=== PATIENT | female | born 1950 | race Caucasian/White ===

== ENCOUNTER 2016-11-15 13:43 | Emergency (ER) | payer MEDICARE, BC ==
[~2016-11-15 13:43] MED LIST: AZIT250T PO; CEFP200T PO; HCTZ PO; IPRA3AMP NEB; LEXAPRO PO; LIPITOR PO; METF500T4 PO; METOPROLOL PO; OMEP20TA63 PO; OSEL75CA PO; VALS320T2 PO
--- NOTE | 2016-11-15 15:01 | RAD ---
CT of the head without contrast, 11/15/2016: History: Head injury, anticoagulated The ventricles are within normal limits in size. There is no shift of the midline structures. There is no evidence of acute intracranial hemorrhage or mass effect. There is mild mucosal thickening in the left sphenoid and both ethmoid sinuses. Incidental note is made of a calvarial lucency in the left parietal region. This is a nonspecific appearance which could be due to a variety of causes including an enlarged venous mccollum, a benign tumor such as a hemangioma, multiple myeloma or metastatic disease. IMPRESSION: 1. No acute intracranial abnormality is detected. 2. Nonspecific left parietal calvarial lucency PQRS Compliance Statement: One or more of the following individualized dose reduction techniques were utilized for this examination: 1. Automated exposure control 2. Adjustment of the mA and/or kV according to patient size 3. Use of iterative reconstruction technique
--- NOTE | 2016-11-15 15:20 | PHYS DOC ---
Past History Past Medical History: Anxiety, Diabetes, Hypertension, Pneumonia Past Surgical History: Cholecystectomy, Other Alcohol Use: None Drug Use: None Adult General Chief Complaint Chief Complaint: FACE PAIN [facility] HPI 66-year-old lady presents having fallen struck her face she is on Coumadin and her doctor has told her that when she strikes her head she needs to have her head checked Review of Systems Review of Systems Constitutional: Denies fever or chills [] Eyes: Denies change in visual acuity, redness, or eye pain [] HENT she has some tenderness to her nose] Respiratory: Denies cough or shortness of breath [] Cardiovascular: No additional information not addressed in HPI [] GI: Denies abdominal pain, nausea, vomiting, bloody stools or diarrhea [] : Denies dysuria or hematuria [] Musculoskeletal: Denies back pain or joint pain [] Integument: Denies rash or skin lesions [] Neurologic: Denies headache, focal weakness or sensory changes [] Endocrine: Denies polyuria or polydipsia [] Allergies Allergies Allergies Coded Allergies Type Severity Reaction Last Updated Verified codeine Allergy Intermediate 07/02/16 Yes Physical Exam Physical Exam Constitutional: Well developed, well nourished, no acute distress, non-toxic appearance. [] HENT: Normocephalic, atraumatic, bilateral external ears normal, oropharynx moist, no oral exudates, nose normal. [] Eyes: PERRLA, EOMI, conjunctiva normal, no discharge. [] Neck: Normal range of motion, no tenderness, supple, no stridor. [] Cardiovascular:Heart rate regular rhythm, no murmur [] Lungs & Thorax: Bilateral breath sounds clear to auscultation [] Abdomen: Bowel sounds normal, soft, no tenderness, no masses, no pulsatile masses. [] Skin: Warm, dry, no erythema, no rash. [] Back: No tenderness, no CVA tenderness. [] Extremities: No tenderness, no cyanosis, no clubbing, ROM intact, no edema. [] Neurologic: Alert and oriented X 3, normal motor function, normal sensory function, no focal deficits noted. Her neurologic examination is entirely normal Psychologic: Affect normal, judgement normal, mood normal. [] Current Patient Data Lab Results Laboratory Tests Test 11/15/16 14:32 Prothrombin Time 35.4 SEC (9.4-11.4) H Prothrombin Time INR 3.4 (0.9-1.1) H EKG EKG [] Radiology/Procedures Radiology/Procedures [] Impressions: Nasal contusion Course & Med Decision Making Course & Med Decision Making Pertinent Labs and Imaging studies reviewed. (See chart for details) INR is 3.4 and this was reported to the patient [] Dragon Disclaimer Dragon Disclaimer This chart was dictated in whole or in part using Voice Recognition software in a busy, high-work load, and often noisy Emergency Department environment. It may contain unintended and wholly unrecognized errors or omissions. Departure Departure: Referrals: MERYL KINNEY (PCP) ZOILA CHAPA MD Nov 15, 2016 15:20
[2016-11-15 15:30] VITALS: BP 138/86
== END 2016-11-15 15:30 | disposition home or self-care (01) ==
LOC: ER 13:43
DX: S00.33XA Contusion of nose, initial encounter (principal); E11.9 Type 2 diabetes mellitus without complications; F41.9 Anxiety disorder, unspecified; Z88.6 Allergy status to analgesic agent; Z79.01 Long term (current) use of anticoagulants; W18.09XA Striking against other object with subsequent fall, initial encounter; Y93.89 Activity, other specified; Y99.8 Other external cause status; Y92.89 Other specified places as the place of occurrence of the external cause
CPT/HCPCS: 36415; 70450; 85610; 99285-25

== ENCOUNTER → 2019-04-01 | Outpatient (CLI) | payer MEDICARE, BC ==
[~2019-04-01] MED LIST changes: -IPRA3AMP NEB; +IPRA3AMP29 NEB; +METF500T16 PO; -METF500T4 PO
--- NOTE | 2019-04-02 09:13 | RAD ---
CT CHEST WO CONTRAST Indication: Abnormal finding of the lung Technique: Noncontrast CT imaging was performed of the chest, multiplanar reconstruction images submitted. One or more of the following individualized dose reduction techniques were utilized for this examination: 1. Automated exposure control 2. Adjustment of the mA and/or kV according to patient size 3. Use of iterative reconstruction technique. Comparison: 07/22/2016 Findings: There is mild dependent density of the lower lobes bilaterally may be component of atelectasis, also mild groundglass density present. There is mild linear atelectasis or fibrotic change of the lingula and right middle lobes. There is no pericardial or pleural fluid, lobar consolidation, pneumothorax. There is again moderate size hiatal hernia, nonspecific wall thickening involved segment. There is some coronary calcification. Ascending thoracic aorta measurements about 3.4 cm. Heart is enlarged. There is some calcification in the visualized left renal hilar region likely vascular in etiology. There is a tiny 0.2 cm right middle lobe nodule image 206 series 2. No significantly enlarged nodes are identified of the chest. IMPRESSION: 1. Mild dependent density of the lower lobes bilaterally is likely component of atelectasis, possibly component of mild dependent edema given the somewhat enlarged heart. There is no discrete suspicious pulmonary nodularity, tiny 0.2 cm right middle lobe nodule for which optional 12 month follow-up could be obtained as per Fleischner guidelines if increased risk factors for neoplasm, otherwise no additional follow-up needed. 2. There is hiatal hernia, nonspecific wall thickening of involved segment. 3. There is some coronary calcification. Electronically signed by: Abhijit Moore MD (04/02/2019 9:10 AM) [id number]
== END | disposition home or self-care (01) ==
LOC: CT 13:33
PROVIDERS: ATTEND Specialist
DX: R91.1 Solitary pulmonary nodule (principal); K44.9 Diaphragmatic hernia without obstruction or gangrene; I25.10 Atherosclerotic heart disease of native coronary artery without angina pectoris; I51.7 Cardiomegaly
CPT/HCPCS: 71250

== ENCOUNTER 2019-11-10 13:17 | Emergency (ER) | payer MEDICARE, BC ==
[~2019-11-10] VITALS: Ht 162.6 cm; Wt 98.8 kg
[2019-11-10] MEDS ORDERED: ASPIRIN CHEWABLE 81 MG TABLET. ONE (13:26)
[2019-11-10] MEDS ORDERED: ASPIRIN CHEWABLE 81 MG TABLET. PO ONE (13:30)
--- NOTE | 2019-11-10 13:32 | PHYS DOC ---
Past History Past Medical History: Anxiety, Diabetes, Hypertension, Pneumonia, Other Past Surgical History: Cholecystectomy, Tonsillectomy, Other Alcohol Use: None Drug Use: None General Adult EDM: Chief Complaint: CHEST PAIN HPI: HPI: Patient is a 69-year-old female who presents to the emergency department for evaluation. She states that about 30 minutes prior to arrival she developed some sharp left-sided chest discomfort, worse with deep breathing and exertion. She reports a mild shortness of breath. She has not had any nausea, vomiting, or diaphoresis. She has no prior coronary history, but she does have risk factors including hypertension, hyperlipidemia, and diabetes. Other than as stated above there are no alleviating or exacerbating factors to her symptoms. Review of Systems: Review of Systems: Constitutional: Denies fever or chills Eyes: Denies change in visual acuity HENT: Denies nasal congestion or sore throat Respiratory: Denies cough Cardiovascular: As per HPI GI: Denies abdominal pain, nausea, vomiting, bloody stools or diarrhea : Denies dysuria Musculoskeletal: Denies back pain or joint pain Integument: Denies rash Neurologic: Denies headache, focal weakness or sensory changes Endocrine: Denies polyuria or polydipsia Lymphatic: Denies swollen glands Psychiatric: Denies depression or anxiety Heart Score: HEART Score for Chest Pain: HEART Score for Chest Pain Response (Comments) Value History Slighlty/Non-Suspicious 0 ECG Normal 0 Age > 65 2 Risk Factors >3 Risk Factors or Hx CAD 2 Troponin < Normal Limit 0 Total 4 Risk Factors: Risk Factors: DM, Current or recent (<one month) smoker, HTN, HLP, family history of CAD, obesity. Risk Scores: Score 0 - 3: 2.5% MACE over next 6 weeks - Discharge Home Score 4 - 6: 20.3% MACE over next 6 weeks - Admit for Clinical Observation Score 7 - 10: 72.7% MACE over next 6 weeks - Early Invasive Strategies Current Medications: Current Meds: Current Medications Medications (Trade) Dose Ordered Sig/Dwayne Start Time Stop Time Status Last Admin Dose Admin Aspirin (Aspirin Chewable) 81 mg STK-MED ONCE 11/10/19 13:26 11/10/19 13:26 DC Allergies: Allergies: Allergies Coded Allergies Type Severity Reaction Last Updated Verified codeine Allergy Intermediate 07/02/16 Yes Physical Exam: PE: PHYSICAL EXAM: CONSTITUTIONAL: Well developed, well nourished HEAD: normocephalic, atraumatic EENT: PERRL, EOMI. Conjunctivae normal color, sclerae non-icteric; moist mucous membranes. NECK: Supple, non-tender; no meningismus. LUNGS: Lungs CTA, breathing even and unlabored. Normal air movement. HEART: Regular rate and rhythm, no murmur CHEST: No deformity; non-tender ABDOMEN: The abdomen is soft, there is epigastric and left upper abdominal tenderness to palpation which somewhat reproduces the patient's "chest pain", the remainder the abdomen is soft and non-tender, no masses or bruits. EXTREM: Normal ROM; no deformity, no calf tenderness. Normal pulses palpable in all extremities. There is no pedal edema. SKIN: No rash; no diaphoresis NEURO: Alert; normal speech and cognition; CN's grossly intact; strength grossly intact without focal deficit. BACK: No CVA TTP. Current Patient Data: Labs: Laboratory Tests Test 11/10/19 13:31 11/10/19 13:55 White Blood Count 6.5 x10^3/uL Red Blood Count 3.88 x10^6/uL Hemoglobin 11.0 g/dL Hematocrit 33.7 % Mean Corpuscular Volume 87 fL Mean Corpuscular Hemoglobin 28 pg Mean Corpuscular Hemoglobin Concent 33 g/dL Red Cell Distribution Width 15.1 % Platelet Count 321 x10^3/uL Neutrophils (%) (Auto) 53 % Lymphocytes (%) (Auto) 34 % Monocytes (%) (Auto) 8 % Eosinophils (%) (Auto) 4 % Basophils (%) (Auto) 1 % Neutrophils # (Auto) 3.5 x10^3uL Lymphocytes # (Auto) 2.2 x10^3/uL Monocytes # (Auto) 0.5 x10^3/uL Eosinophils # (Auto) 0.2 x10^3/uL Basophils # (Auto) 0.1 x10^3/uL Sodium Level 138 mmol/L Potassium Level 4.2 mmol/L Chloride Level 102 mmol/L Carbon Dioxide Level 23 mmol/L Anion Gap 13 Blood Urea Nitrogen 13 mg/dL Creatinine 0.8 mg/dL Estimated GFR (Cockcroft-Gault) 70.7 BUN/Creatinine Ratio 16 Glucose Level 131 mg/dL Calcium Level 9.3 mg/dL Total Bilirubin 0.4 mg/dL Aspartate Amino Transf (AST/SGOT) 21 U/L Alanine Aminotransferase (ALT/SGPT) 24 U/L Alkaline Phosphatase 71 U/L Troponin I Quantitative < 0.017 ng/mL DV-Lcv-V-Type Natriuretic Peptide 168 pg/mL Total Protein 7.9 g/dL Albumin 3.5 g/dL Albumin/Globulin Ratio 0.8 Lipase 86 U/L D-Dimer (Mckenna) 0.52 mg/L Current Medications Medications (Trade) Dose Ordered Sig/Dwayne Route PRN Reason Start Time Stop Time Status Last Admin Dose Admin Aspirin (Aspirin Chewable) 81 mg STK-MED ONCE .ROUTE 11/10/19 13:26 11/10/19 13:26 DC Aspirin (Aspirin Chewable) 162 mg 1X ONCE PO 11/10/19 13:30 11/10/19 13:32 DC Multi-Ingredient Mouthwash/Gargle (Gi Cocktail) 20 ml 1X ONCE PO 11/10/19 15:00 11/10/19 15:33 DC Iohexol (Omnipaque 350 Mg/ml) 100 ml 1X ONCE IV 11/10/19 15:00 11/10/19 15:01 DC 11/10/19 15:19 Info (Do NOT chart on this entry -- for MONITORING) 1 each PRN DAILY PRN MC SEE COMMENTS 11/10/19 15:00 11/12/19 14:59 EKG: EKG: [] Normal sinus rhythm at a rate of 56 bpm, left axis deviation, normal interva ls. There are no acute ischemic ST/T changes. Radiology/Procedures: Radiology/Procedures: PROCEDURE: PORTABLE CHEST 1V Examination: PORTABLE CHEST 1V History: Reason: CHEST PAIN / Spl. Instructions: / History: Comparison/Correlation: 07/24/2016 AP view of the chest Findings: Portable frontal view of chest was obtained. Heart size is borderline mildly enlarged but this may be technique related and is unchanged. No infiltrate or pleural effusion. No pneumothorax. Small hiatal hernia noted. Bony structures are unremarkable. Impression: Hiatal hernia. No infiltrate. [] PROCEDURE: CT ANGIOGRAPHY CHEST PQRS Compliance Statement: One or more of the following individualized dose reduction techniques were utilized for this examination: 1. Automated exposure control 2. Adjustment of the mA and/or kV according to patient size 3. Use of iterative reconstruction technique CT CHEST WITH CONTRAST, PULMONARY ANGIOGRAM History: Chest pain, elevated d-dimer. History of PE. Comparison: CT chest without contrast April 01, 2019. Technique: Helical CT of the chest was performed after the administration of 100 cc of Omnipaque 350 intravenous contrast according to PE protocol. Axial and coronal reconstructions were obtained. 3-D MIP images were constructed to better evaluate the pulmonary arteries. Findings: Pulmonary arteries are adequately opacified. There is no evidence of pulmonary embolism. The thyroid is symmetric. There is no adenopathy in the chest. There are subcentimeter mediastinal lymph nodes. Great vessels are normal caliber. There is no thoracic aortic dissection. There is coronary artery disease. The cardiac size is mildly enlarged but unchanged. There is no pericardial effusion. Moderate-sized hiatal hernia is unchanged. No pleural effusion is seen. Central airways are patent. There is moderate atelectasis in the posterior lower lobes bilaterally. 2 mm nodule in the right middle lobe is stable. Rim calcified left renal vessel is unchanged. There is degenerative endplate spurring of the thoracic spine. IMPRESSION: 1. There is no CT evidence of pulmonary embolus. 2. Moderate bilateral dependent atelectasis. 3. Moderate-sized hiatal hernia is unchanged. Course & Med Decision Making: Course & Med Decision Making Pertinent Labs and Imaging studies reviewed. (See chart for details) [] 4:05 PM: Patient's condition remained stable. Her symptoms have completely resolved. Her hemoglobin is similar to baseline. I had an extensive discussion with the patient about the limitations of ER cardiac evaluation in definitively ruling out acute coronary syndrome. We discussed limitation of the ER evaluation and a singe ED troponin in r/o AMI, and the risks involved in missed diagnosis of acute coronary syndrome including or permanent debility. I recommended overnight observation for further formal cardiac evaluation to rule out acute coronary syndrome. After expressing understanding of the limitations of ER cardiac evaluation, as well as the risks of missed diagnosis, the patient declined further cardiac evaluation at this time. The patient was mentally competent, and given opportunity to ask questions about the diagnosis and recommended plan of care. I stressed the importance of outpatient follow-up, and returning to the emergency department for new or worsening symptoms, or if the patient is agreeable to undergo further cardiac evaluation. Dragon Disclaimer: Dragon Disclaimer: This electronic medical record was generated, in whole or in part, using a voice recognition dictation system. Departure Departure: Impression: Primary Impression: Chest pain Disposition: HOME/RESIDENCE PRIOR TO ADM Condition: STABLE Referrals: GIRISH JIMENES MD (PCP) Patient Instructions: Chest Pain (Nonspecific) Justification of Admission: Justification of Admission: Justification of Admission Dx: N/A ISMAEL MICHAELS MD Nov 10, 2019 13:32
[2019-11-10 13:47] LABS: BASO # 0.1 x10^3/uL (0.0-0.2); BASO % 1 % (0-3); EOS # 0.2 x10^3/uL (0.0-0.7); EOS % 4 % (0-3); HEMATOCRIT 33.7 % (36.0-47.0); LYMPH # 2.2 x10^3/uL (1.0-4.8); LYMPH % 34 % (24-48); MEAN CORPUSCULAR HEMOGLOBIN 28 pg (25-35); MEAN CORPUSCULAR HGB CONC 33 g/dL (31-37); MEAN CORPUSCULAR VOLUME 87 fL (79-100); MONO # 0.5 x10^3/uL (0.0-1.1); MONO % 8 % (0-9); NEUT # 3.5 x10^3uL (1.8-7.7); NEUT % 53 % (31-73); PLATELET COUNT 321 x10^3/uL (140-400); RED BLOOD COUNT 3.88 x10^6/uL (3.50-5.40); RED CELL DISTRIBUTION WIDTH 15.1 % (11.5-14.5); WHITE BLOOD COUNT 6.5 x10^3/uL (4.0-11.0)
--- NOTE | 2019-11-10 13:49 | RAD ---
Examination: PORTABLE CHEST 1V History: Reason: CHEST PAIN / Spl. Instructions: / History: Comparison/Correlation: 07/24/2016 AP view of the chest Findings: Portable frontal view of chest was obtained. Heart size is borderline mildly enlarged but this may be technique related and is unchanged. No infiltrate or pleural effusion. No pneumothorax. Small hiatal hernia noted. Bony structures are unremarkable. Impression: Hiatal hernia. No infiltrate. Electronically signed by: Ayan Champion MD (11/10/2019 1:46 PM) [id number]
[2019-11-10 13:58] LABS: CALCIUM 9.3 mg/dL (8.5-10.1); CREATININE 0.8 mg/dL (0.6-1.0); GFR 70.7; POTASSIUM 4.2 mmol/L (3.5-5.1)
[2019-11-10 14:11] LABS: ALBUMIN 3.5 g/dL (3.4-5.0); ALBUMIN/GLOBULIN RATIO 0.8 (1.0-1.7); TOTAL BILIRUBIN 0.4 mg/dL (0.2-1.0); TOTAL PROTEIN 7.9 g/dL (6.4-8.2)
[2019-11-10] MEDS ORDERED: IOHEXOL 350 MG/ML 100 ML VIAL. IV ONE (15:00)
[2019-11-10] MEDS ORDERED: CONTRAST GIVEN MC PRN (15:00)
[2019-11-10] MEDS ORDERED: LIDO:MAALOX 1:1 20 ML SINGLE DOSE. PO ONE (15:00)
--- NOTE | 2019-11-10 15:48 | RAD ---
PQRS Compliance Statement: One or more of the following individualized dose reduction techniques were utilized for this examination: 1. Automated exposure control 2. Adjustment of the mA and/or kV according to patient size 3. Use of iterative reconstruction technique CT CHEST WITH CONTRAST, PULMONARY ANGIOGRAM History: Chest pain, elevated d-dimer. History of PE. Comparison: CT chest without contrast April 01, 2019. Technique: Helical CT of the chest was performed after the administration of 100 cc of Omnipaque 350 intravenous contrast according to PE protocol. Axial and coronal reconstructions were obtained. 3-D MIP images were constructed to better evaluate the pulmonary arteries. Findings: Pulmonary arteries are adequately opacified. There is no evidence of pulmonary embolism. The thyroid is symmetric. There is no adenopathy in the chest. There are subcentimeter mediastinal lymph nodes. Great vessels are normal caliber. There is no thoracic aortic dissection. There is coronary artery disease. The cardiac size is mildly enlarged but unchanged. There is no pericardial effusion. Moderate-sized hiatal hernia is unchanged. No pleural effusion is seen. Central airways are patent. There is moderate atelectasis in the posterior lower lobes bilaterally. 2 mm nodule in the right middle lobe is stable. Rim calcified left renal vessel is unchanged. There is degenerative endplate spurring of the thoracic spine. IMPRESSION: 1. There is no CT evidence of pulmonary embolus. 2. Moderate bilateral dependent atelectasis. 3. Moderate-sized hiatal hernia is unchanged. Electronically signed by: Fan Merino MD (11/10/2019 3:45 PM) [facility]
[2019-11-10 15:57] VITALS: BP 172/88
--- NOTE | 2019-11-12 07:58 | EKG ---
[facility] [address] [place] [address] Test Date: 2019-11-10 Test Time: 13:23:16 Pat Name: GIRISH BOSTON Department: Room: Gender: Education Program Manager: : 1950 Requested By: ISMAEL MICHAELS Order Number: [id number] Reading MD: Amador Hare MD Measurements Intervals [place] Rate: P: SC: QRS: QRSD: T: QT: QTc: Interpretive Statements SR PRIOR INFERIOR INFARCT Electronically Signed On 11-16-2019 13:28:38 CDT by Amador Hare MD
== END 2019-11-12 16:23 | disposition home or self-care (01) ==
LOC: ER 13:17
DX: R07.89 Other chest pain (principal); R06.02 Shortness of breath; R10.12 Left upper quadrant pain; E11.9 Type 2 diabetes mellitus without complications; I10 Essential (primary) hypertension; Z90.49 Acquired absence of other specified parts of digestive tract; Z88.5 Allergy status to narcotic agent
CPT/HCPCS: 36415; 71045; 71275; 80053; 83690; 83880; 84484; 85025; 85379; 93005; 99285; Q9967

== ENCOUNTER → 2020-07-29 | Outpatient (CLI) | payer MEDICARE, BC ==
--- NOTE | 2020-07-29 17:57 | RAD ---
PROCEDURE: XR FOOT_RIGHT 3 VIEWS STUDY DATE: 07/29/2020 CLINICAL INDICATION / HISTORY: Reason: RIGHT FOOT PAIN / Spl. Instructions: / History: . TECHNIQUE: AP, lateral and oblique views of the right foot. COMPARISON: None FINDINGS: No fracture or dislocation is identified. The bone density is normal. The joint space width s are narrowed at the tarsometatarsal junctions and in the intermetatarsal joints, suggesting a degen erative changes. There are no erosions to suggest an inflammatory arthropathy. No soft tissue abnorma lity is seen. IMPRESSION: Right midfoot degenerative changes. No acute fracture or malalignment. Electronically signed by: Cristofer Burris MD (07/29/2020 5:55 PM) [id number]
== END ==
LOC: DXRAD 15:35
PROVIDERS: ATTEND Specialist
DX: M19.071 Primary osteoarthritis, right ankle and foot (principal)
CPT/HCPCS: 73630

== ENCOUNTER → 2021-10-27 | Outpatient (CLI) | payer MEDICARE, BC ==
--- NOTE | 2021-10-27 16:36 | RAD ---
XR LUMBAR SPINE 2-3V History: Reason: Left leg weakness / Spl. Instructions: / History: Technique: 3 views lumbar spine. Comparison: None. Findings: Moderate degenerative disc changes most prominent L5-S1. Facet arthropathy. No acute fracture. Surgic al clips right upper quadrant. Impression: 1. Moderate lumbar spondylosis. Electronically signed by: Deven Rubalcava DO (10/27/2021 4:34 PM) [id number]
--- NOTE | 2021-10-27 16:38 | RAD ---
XR PELVIS 1-2V History: Reason: Left leg weakness / Spl. Instructions: / History: Technique: AP view the pelvis. Comparison: None. Findings: No dislocation on AP view. No acute fracture. Mild pubic symphysis degenerative changes. Lower lumbar spondylosis. Impression: 1. No acute osseous abnormality. Electronically signed by: Deven Rubalcava DO (10/27/2021 4:35 PM) [id number]
--- NOTE | 2021-10-31 09:01 | RAD ---
CT THORAX WO History: Shortness of air Technique: Noncontrast CT of the chest was performed. Coronal and sagittal reconstructions were perfo rmed. Exposure: One or more of the following individualized dose reduction techniques were utilized for thi s examination: 1. Automated exposure control 2. Adjustment of the mA and/or kV according to patient size 3. Use of iterative reconstruction technique. Comparison: November 10, 2019 and April 01, 2019. CT abdomen and pelvis July 19, 2016. Findings: Chest: Small mediastinal lymph nodes, unchanged. Mild coronary artery calcifications. Moderate hiatal hernia, unchanged. Mild secretions within the distal esophagus. Mild atheromatous plaque within the aorta. No consolidation or pleural effusion. Mild scattered linea r atelectasis most prominent posterior dependently. No pneumothorax. 2 mm left lower lobe pulmonary nodule (series 2 image 45), unchanged compared to 2019 and likely luz gn given stability over time. Upper abdomen: Prior cholecystectomy. 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 Bones: Mild thoracic spondylosis. Impression: 1. No acute thoracic pathology. 2. Scattered linear atelectasis most prominent within the lower lobes. 3. Moderate hiatal hernia with secretions in the esophagus likely related to gastroesophageal reflux . Electronically signed by: Deven Rubalcava DO (10/31/2021 8:59 AM) [facility]DAVID
== END ==
LOC: CT 11:37
PROVIDERS: ATTEND Specialist
DX: K44.9 Diaphragmatic hernia without obstruction or gangrene (principal); J98.11 Atelectasis; I25.10 Atherosclerotic heart disease of native coronary artery without angina pectoris; I70.0 Atherosclerosis of aorta; M16.10 Unilateral primary osteoarthritis, unspecified hip; R29.898 Other symptoms and signs involving the musculoskeletal system; M47.814 Spondylosis without myelopathy or radiculopathy, thoracic region; M48.8X6 Other specified spondylopathies, lumbar region; M47.817 Spondylosis without myelopathy or radiculopathy, lumbosacral region; Z98.890 Other specified postprocedural states
CPT/HCPCS: 71250; 72100; 72170